=== PATIENT | male | born 1935 | race Caucasian/White ===

== ENCOUNTER 2017-10-13 15:43 | Emergency (ER) | payer MEDICARE ==
[2017-10-13] MEDS ORDERED: Albuterol/Ipratropium 3.0-0.5 MG/3 ML Neb Soln NEB ONE (16:18)
--- NOTE | 2017-10-13 16:20 | EDM.PDOC ---
ED HPI GENERAL MEDICAL PROBLEM - General Chief Complaint: Respiratory Problem Stated Complaint: SHORT OF BREATH Time Seen by Provider: 10/13/17 16:05 Source of Information: Reports: Patient History Limitations: Reports: No Limitations - History of Present Illness INITIAL COMMENTS - FREE TEXT/NARRATIVE: Patient comes in with 2 week history of cough. He seen in the clinic this last week Saturday and was started on Bactrim and Tessalon Pearls for this ongoing cough he did have an x-ray completed which he was told was normal. However he states that no lab work is drawn at the time he is not sure what his diagnosis was in the clinic other than he was prescribed the 2 medications. Patient states that the cough is progressed he is becoming more short of breath with activity is unable to lay flat in bed at night. Exertion wears him out. The cough becomes so pronounce he will gag. He is producing large amounts of sputum. He does not check his temp but was extremely chill last night in bed. Denies and chest pain, n/v, headache, blurred vision, or numbness and tingling. Onset: Gradual Duration: Constant Associated Symptoms: Reports: Cough, cough w sputum, Shortness of Breath - Related Data Allergies Allergy/AdvReac Type Severity Reaction Status Date / Time niacin Allergy Nausea and Verified 10/13/17 15:59 Vomiting Home Meds: Home Meds ALPRAZolam [Xanax] 0.25 mg PO Q8H PRN 08/04/13 [History] Albuterol [Proventil HFA] 1 puff INH QID PRN 08/04/13 [History] Aspirin [Low Dose Aspirin EC] 81 mg PO DAILY 08/04/13 [History] Carvedilol [Coreg] 25 mg PO BID 08/04/13 [History] Docusate Sodium [Colace] 100 mg PO DAILY 08/04/13 [History] Furosemide [Lasix] 20 mg PO BID 08/04/13 [History] Losartan [Cozaar] 100 mg PO DAILY 08/04/13 [History] Nitroglycerin [Nitrostat] 0.4 mg SL ASDIRECTED PRN 08/04/13 [History] Omeprazole [Prilosec] 20 mg PO DAILY PRN 08/04/13 [History] Sertraline [Zoloft] 25 mg PO DAILY 08/04/13 [History] Simethicone [Mylanta Gas Maximum Strength] 10 ml PO BID PRN 08/04/13 [History] Albuterol/Ipratropium [DuoNeb 3.0-0.5 MG/3 ML] 3 ml .XX TID 1 Days #3 neb [Rx] Budesonide/Formoterol [Symbicort 160-4.5 MCG] 2 puff INH BID 10/13/17 [History] Calcium Carbonate/Vitamin D3 [Calcium 500 + Vit D 200 Caplet] 1 each PO BID 07/20 [History] Fish Oil/Borage/Flax/Om3,6,9#1 [[place] 3-6-9 1,200 mg Softgel] 1,200 mg PO DAILY 10/13/17 [History] Hydrochlorothiazide 12.5 mg PO DAILY 10/13/17 [History] Isosorbide Mononitrate [Imdur] 60 mg PO DAILY 10/13/17 [History] Tiotropium [Spiriva] 18 mcg INH DAILY 10/13/17 [History] atorvaSTATin [Lipitor] 20 mg PO DAILY 10/13/17 [History] metFORMIN [Glucophage] 500 mg PO WITHDINNER 10/13/17 [History] Past Medical History HEENT History: Reports: Cataract Cardiovascular History: Reports: Angina, CAD, Heart Failure, High Cholesterol, Hypertension, [place], Other (See Below) Other Cardiovascular History: mild aortic regurg., mitral valve insuff. Respiratory History: Reports: Asthma, COPD Gastrointestinal History: Reports: GERD Psychiatric History: Reports: Anxiety Endocrine/Metabolic History: Reports: Diabetes, Type II, Obesity/BMI 30+ Hematologic History: Reports: Anemia, Other (See Below) Other Hematologic History: thrombocytopenia Oncologic (Cancer) History: Reports: Prostate - Past Surgical History Cardiovascular Surgical History: Reports: Coronary Artery Bypass, Coronary Artery Stent Social & Family History - Tobacco Use Smoking Status *Q: Former Smoker Used Tobacco, but Quit: Yes Month Tobacco Last Used: 1995 - Recreational Drug Use Recreational Drug Use: No ED ROS GENERAL - Review of Systems Review Of Systems: See Below Constitutional: Reports: Chills, Malaise, Night Sweats HEENT: Reports: Rhinitis Respiratory: Reports: Shortness of Breath, Wheezing, Cough, Sputum Cardiovascular: Reports: Dyspnea on Exertion Endocrine: Reports: No Symptoms GI/Abdominal: Reports: No Symptoms Musculoskeletal: Reports: No Symptoms Skin: Reports: No Symptoms Neurological: Reports: No Symptoms ED EXAM, GENERAL - Physical Exam Exam: See Below Exam Limited By: No Limitations General Appearance: Alert, WD/WN, No Apparent Distress Ear Exam: Bilateral Ear: Auricle Normal, Canal Normal, TM normal Nose: Normal Inspection, Normal Mucosa Throat/Mouth: Normal Inspection, Normal Lips, Normal Gums, Normal Oropharynx, Normal Voice, No Airway Compromise Respiratory/Chest: Decreased Breath Sounds, Wheezing. No: Stridor, Pleural Rub , Accessory Muscle Use, Retractions, Splinting Cardiovascular: Regular Rate, Rhythm, No Edema, No Murmur, No Rub Peripheral Pulses: 2+: Radial (L), Radial (R), Posterior Tibial (L), Posterior Tibial (R), Dorsalis Pedis (L), Dorsalis Pedis (R) GI/Abdominal: Normal Bowel Sounds, Soft, Non-Tender, No Distention Extremities: Normal Inspection, Normal Range of Motion, Non-Tender, Normal Capillary Refill Neurological: Alert, Oriented, Normal Cognition, Normal Gait Psychiatric: Normal Affect, Normal Mood Skin Exam: Warm, Dry, Intact, Normal Color, No Rash EKG INTERPRETATION Rhythm: A-Fib Course - Vital Signs Last Recorded V/S: Last Vital Signs Temp 35.9 C 10/13/17 15:56 Pulse 74 10/13/17 15:56 Resp 24 H 10/13/17 15:56 BP 165/83 H 10/13/17 15:56 Pulse Ox 96 10/13/17 15:56 - Orders/Labs/Meds Orders: Active Orders 24 hr Category Date Time Status EKG 12 Lead [EKG Documentation Completion] [RC] URGENT Care 10/13/17 16:19 Active RT Aerosol Therapy [RC] ASDIRECTED Care 10/13/17 16:18 Active Chest 2V [CR] Stat Exams 10/13/17 16:26 Taken Azithromycin [Zithromax] Med 10/13/17 17:15 Active 500 mg PO DAILY Medication Orders Azithromycin (Zithromax) 500 mg PO DAILY [facility] Last Admin: 10/13/17 17:18 Dose: 500 mg Labs: Laboratory Tests 10/13/17 10/13/17 Range/Units 16:30 16:30 WBC 5.3 (4.0-10.0) x10^3/uL RBC 3.94 L (4.5-6.0) x10^6/uL Hgb 11.8 L (14.0-18.0) g/dL Hct 34.9 L (40.0-52.0) % MCV 88.6 (78.0-93.0) fL MCH 29.9 (26.0-32.0) pg MCHC 33.8 (32.0-36.0) g/dL RDW Coeff of Tony 14.0 (10.0-15.0) % Plt Count 125 L (130-400) x10^3/uL Neut % (Auto) 62.8 (50.0-80.0) % Lymph % (Auto) 19.7 L (25.0-50.0) % [place] % (Auto) 10.7 (2.0-11.0) % Eos % (Auto) 6.2 H (0.0-4.0) % Baso % (Auto) 0.6 (0.2-1.2) % Sodium 138 (136-145) mmol/L Potassium 4.2 (3.5-5.1) mmol/L Chloride 103 (98-107) mmol/L Carbon Dioxide 23 (21-32) mmol/L BUN 13 (7-18) mg/dL Creatinine 1.4 H (0.70-1.30) mg/dL Est Cr Clr Drug Dosing 45.42 mL/min Estimated GFR (MDRD) 49 Glucose 97 (74-106) mg/dL Calcium 7.9 L (8.5-10.1) mg/dL Corrected Calcium 8.38 L (8.5-10.1) mg/dL Total Bilirubin 0.4 (0.2-1.0) mg/dL AST 24 (15-37) U/L ALT 32 (16-63) U/L Alkaline Phosphatase 69 (46-116) U/L NT-Pro-B Natriuret Pep 484 H (<=450) pg/mL Total Protein 6.3 L (6.4-8.2) g/dL Albumin 3.4 (3.4-5.0) g/dL Globulin 2.9 Albumin/Globulin Ratio 1.17 Meds: Medications Generic Name Dose Route Start Last Admin Trade Name Freq PRN Reason Stop Dose Admin Azithromycin 500 mg 10/13/17 17:15 10/13/17 17:18 Zithromax PO 500 mg DAILY ZOIE Administration Discontinued Medications Generic Name Dose Route Start Last Admin Trade Name Maryse PRN Reason Stop Dose Admin Albuterol/Ipratropium 3 ml 10/13/17 16:18 10/13/17 16:27 Duoneb 3.0-0.5 Mg/3 Ml NEB 10/13/17 16:19 3 ml ONETIME ONE Administration Albuterol/Ipratropium Confirm 10/13/17 17:13 10/13/17 17:20 Duoneb 3.0-0.5 Mg/3 Ml Administered 10/13/17 17:14 9 ml Dose Administration 9 ml .ROUTE .STK-MED ONE Departure - Departure Time of Disposition: 17:15 Disposition: Home, Self-Care 01 Condition: Good Clinical Impression: Acute bronchiolitis Qualifiers: Bronchiolitis organism: unspecified organism Qualified Code(s): J21.9 - Acute bronchiolitis, unspecified - Discharge Information Prescriptions: Albuterol/Ipratropium [DuoNeb 3.0-0.5 MG/3 ML] 3 ml .XX TID 1 Days #3 neb Referrals: Mari Victor DO [Primary Care Provider] - Forms: ED Department Discharge Additional Instructions: Follow-up in the clinic within the week regarding your BNP which is 490 Take antibiotics as prescribed Use douneb as needed for shortness of breath and cough Increase rest Activity and diet as tolerated Return to the emergency room if he becomes short of breath having chest pain or worsening symptoms - My Orders Last 24 Hours: My Active Orders 10/13/17 16:18 RT Aerosol Therapy [RC] ASDIRECTED 10/13/17 16:19 EKG 12 Lead [EKG Documentation Completion] [RC] URGENT 10/13/17 16:26 Chest 2V [CR] Stat 10/13/17 17:15 Azithromycin [Zithromax] 500 mg PO DAILY - Assessment/Plan Last 24 Hours: My Active Orders 10/13/17 16:18 RT Aerosol Therapy [RC] ASDIRECTED 10/13/17 16:19 EKG 12 Lead [EKG Documentation Completion] [RC] URGENT 10/13/17 16:26 Chest 2V [CR] Stat 10/13/17 17:15 Azithromycin [Zithromax] 500 mg PO DAILY
[2017-10-13] MEDS ORDERED: Albuterol/Ipratropium 3.0-0.5 MG/3 ML Neb Soln ONE (17:13)
[2017-10-13] MEDS ORDERED: Azithromycin 250 MG Tab PO SCH (17:15)
== END 2017-10-13 17:25 | disposition home or self-care (01) ==
LOC: VM.ED 15:43
DX: J21.9 Acute bronchiolitis, unspecified (principal); E78.00 Pure hypercholesterolemia, unspecified; I11.0 Hypertensive heart disease with heart failure; I50.9 Heart failure, unspecified; E11.9 Type 2 diabetes mellitus without complications; Z88.8 Allergy status to other drugs, medicaments and biological substances; Z79.82 Long term (current) use of aspirin; Z79.899 Other long term (current) drug therapy; Z87.891 Personal history of nicotine dependence
CPT/HCPCS: 36415; 71046; 80053; 83880; 85025; 93005; 94640; 99283; 99285; A9270

== ENCOUNTER 2019-03-21 10:09 | Emergency (ER) | payer MEDICARE ==
--- NOTE | 2019-03-21 10:33 | EDM.PDOC ---
ED HPI GENERAL MEDICAL PROBLEM - General Chief Complaint: General Time Seen by Provider: 03/21/19 10:15 Source of Information: Reports: Patient History Limitations: Reports: No Limitations - History of Present Illness INITIAL COMMENTS - FREE TEXT/NARRATIVE: Patient comes into the emergency department with complaints of urinary retention and not drain catheter. Patient has a chronic catheter and just recently had her exchange approximate 3 days ago. Patient has had no concerns since then however this morning when he woke up his urinary catheter bag was empty and has symmetric amount of pain and distress and his bladder. Patient denies any fever, shortness breath, or peripheral edema. Onset: Sudden Bladder Pain Score (Numeric/FACES): 8 - Related Data Allergies Allergy/AdvReac Type Severity Reaction Status Date / Time niacin AdvReac Nausea and Verified 03/21/19 10:33 Vomiting Home Meds: Home Meds ALPRAZolam [Xanax] 0.25 mg PO Q8H PRN 08/04/13 [History] Albuterol [Proventil HFA] 1 puff INH QID PRN 08/04/13 [History] Aspirin [Low Dose Aspirin EC] 81 mg PO DAILY 08/04/13 [History] Carvedilol [Coreg] 25 mg PO BID 08/04/13 [History] Docusate Sodium [Colace] 100 mg PO DAILY 08/04/13 [History] Furosemide [Lasix] 20 mg PO BID 08/04/13 [History] Losartan [Cozaar] 100 mg PO DAILY 08/04/13 [History] Nitroglycerin [Nitrostat] 0.4 mg SL ASDIRECTED PRN 08/04/13 [History] Omeprazole [Prilosec] 20 mg PO DAILY PRN 08/04/13 [History] Sertraline [Zoloft] 25 mg PO DAILY 08/04/13 [History] Simethicone [Mylanta Gas Maximum Strength] 10 ml PO BID PRN 08/04/13 [History] Albuterol/Ipratropium [DuoNeb 3.0-0.5 MG/3 ML] 3 ml .XX TID 1 Days #3 neb [Rx] Budesonide/Formoterol [Symbicort 160-4.5 MCG] 2 puff INH BID 10/13/17 [History] Calcium Carbonate/Vitamin D3 [Calcium 500 + Vit D 200 Caplet] 1 each PO BID 07/20 [History] Fish Oil/Borage/Flax/Om3,6,9#1 [[place] 3-6-9 1,200 mg Softgel] 1,200 mg PO DAILY 10/13/17 [History] Isosorbide Mononitrate [Imdur] 60 mg PO DAILY 10/13/17 [History] Tiotropium [Spiriva] 18 mcg INH DAILY 10/13/17 [History] atorvaSTATin [Lipitor] 20 mg PO DAILY 10/13/17 [History] hydroCHLOROthiazide [Hydrochlorothiazide] 12.5 mg PO DAILY 10/13/17 [History] metFORMIN [Glucophage] 500 mg PO WITHDINNER 10/13/17 [History] Ciprofloxacin HCl [Cipro] 500 mg PO BID #14 tablet 03/21/19 [Rx] Past Medical History HEENT History: Reports: Cataract Cardiovascular History: Reports: Angina, CAD, Heart Failure, High Cholesterol, Hypertension, [place], Other (See Below) Other Cardiovascular History: mild aortic regurg., mitral valve insuff. Respiratory History: Reports: Asthma, COPD Gastrointestinal History: Reports: GERD Psychiatric History: Reports: Anxiety Endocrine/Metabolic History: Reports: Diabetes, Type II, Obesity/BMI 30+ Hematologic History: Reports: Anemia, Other (See Below) Other Hematologic History: thrombocytopenia Oncologic (Cancer) History: Reports: Prostate - Past Surgical History Cardiovascular Surgical History: Reports: Coronary Artery Bypass, Coronary Artery Stent ED ROS GENERAL - Review of Systems Review Of Systems: ROS reveals no pertinent complaints other than HPI. Constitutional: Reports: No Symptoms HEENT: Reports: No Symptoms Respiratory: Reports: No Symptoms Cardiovascular: Reports: No Symptoms Endocrine: Reports: No Symptoms GI/Abdominal: Reports: No Symptoms : Reports: No Symptoms, Urinary Retention Skin: Reports: No Symptoms Neurological: Reports: No Symptoms Psychiatric: Reports: No Symptoms Hematologic/Lymphatic: Reports: No Symptoms Immunologic: Reports: No Symptoms ED EXAM, GENERAL - Physical Exam Exam: See Below Exam Limited By: No Limitations General Appearance: Alert, WD/WN, No Apparent Distress Head: Atraumatic, Normocephalic Respiratory/Chest: No Respiratory Distress, Lungs Clear, No Accessory Muscle Use , Chest Non-Tender Cardiovascular: Normal Peripheral Pulses, Regular Rate, Rhythm, No Edema (Male) Exam: No Hernia, Normal Inspection, Normal Prostate, Other (cuellar cath in place ) Back Exam: Normal Inspection, Full Range of Motion Extremities: Normal Inspection, Normal Range of Motion, Non-Tender, No Pedal Edema, Normal Capillary Refill Neurological: Alert, Oriented, Normal Gait Psychiatric: Normal Affect, Normal Mood Skin Exam: Warm, Dry, Intact, Normal Color Course - Vital Signs Last Recorded V/S: Last Vital Signs Temp 35.9 C 03/21/19 10:31 Pulse 93 03/21/19 10:31 Resp 20 03/21/19 10:31 BP 165/87 H 03/21/19 10:31 Pulse Ox 95 03/21/19 10:31 - Orders/Labs/Meds Orders: Active Orders 24 hr Category Date Time Status CULTURE URINE [RM] Stat Lab 03/21/19 10:23 Received Labs: Laboratory Tests 03/21/19 Range/Units 10:23 Urine Color [place] H (YELLOW) Urine Appearance Cloudy H (CLEAR) Urine pH >=9.0 H (5.0-8.0) Ur Specific [place] 1.015 Urine Protein 100 H (NEGATIVE) mg/dL Urine Glucose (UA) Negative (NEGATIVE) mg/dL Urine Ketones Negative (NEGATIVE) mg/dL Urine Occult Blood Large H (NEGATIVE) Urine Nitrite Positive H (NEGATIVE) Urine Bilirubin Negative (NEGATIVE) Urine Urobilinogen 1.0 (0.2) EU/dL Ur Leukocyte Esterase Small H (NEGATIVE) Urine RBC 40-50 H (NOT SEEN) /HPF Urine WBC 20-30 H (NOT SEEN) /HPF Ur Squamous Epith Cells Not seen (NEGATIVE) /HPF Urine Bacteria Moderate H (NEGATIVE) /HPF Urine Mucus Not seen (NEGATIVE) /LPF Meds: Medications Discontinued Medications Generic Name Dose Route Start Last Admin Trade Name Flashq PRN Reason Stop Dose Admin Ciprofloxacin 500 mg 03/21/19 11:34 03/21/19 11:38 Ciprofloxacin Hcl PO 03/21/19 11:35 500 mg ONETIME ONE Administration Departure - Departure Time of Disposition: 11:30 Disposition: Home, Self-Care 01 Condition: Good Clinical Impression: Cystitis - Discharge Information *PRESCRIPTION DRUG MONITORING PROGRAM REVIEWED*: Not Applicable *COPY OF PRESCRIPTION DRUG MONITORING REPORT IN PATIENT ROYCE: Not Applicable Prescriptions: Ciprofloxacin HCl [Cipro] 500 mg PO BID #14 tablet Instructions: Urinary Tract Infection, Adult, [id number], Ciprofloxacin tablets Referrals: Mari Victor, [Primary Care Provider] - Forms: ED Department Discharge Additional Instructions: 1. increase your water intake 2. Take antibiotics as prescribed 3. Take a probiotic to help promote GI health 4. Follow up as needed 5. If your Culture comes back with needing a different antibiotic staff will call you. If you do not receive a call then the antibiotics are working well. 6. Activity and diet as tolerated 7. Call with questions or concerns. - Problem List Review Problem List Initiated/Reviewed/Updated: Yes - My Orders Last 24 Hours: My Active Orders 03/21/19 10:23 CULTURE URINE [RM] Stat - Assessment/Plan Last 24 Hours: My Active Orders 03/21/19 10:23 CULTURE URINE [RM] Stat Assessment:: 1. plugged catheter 2. Complicated Cystits/UTI Plan: 1. Catheter irrigation completed via nursing with good results. Pt cath flowing without difficulty after and large amount of sediment draining. 2. UA obtained 3. Pt's symptoms have resolved and feels better after irrigation. Denies any other concerns or complaints. 4. Patient given Ciprofloxacin in the ER and a script sent with the patient. 5. Education given regarding activity, diet, antibiotic, probiotic, OTC pain medications, and follow up care 6. All questions and concerns addressed prior to discharge.
[2019-03-21] MEDS ORDERED: Ciprofloxacin 500 MG Tab PO ONE (11:34)
== END 2019-03-21 11:43 | disposition home or self-care (01) ==
LOC: VM.ED 10:09
DX: T83.098A Other mechanical complication of other urinary catheter, initial encounter (principal); R33.8 Other retention of urine; N30.90 Cystitis, unspecified without hematuria; I11.0 Hypertensive heart disease with heart failure; I50.9 Heart failure, unspecified; E66.9 Obesity, unspecified; I25.10 Atherosclerotic heart disease of native coronary artery without angina pectoris; I25.2 Old myocardial infarction; J44.9 Chronic obstructive pulmonary disease, unspecified; F41.9 Anxiety disorder, unspecified; Z79.84 Long term (current) use of oral hypoglycemic drugs; Z88.8 Allergy status to other drugs, medicaments and biological substances; Z79.82 Long term (current) use of aspirin; Z79.899 Other long term (current) drug therapy
CPT/HCPCS: 81001; 87086; 87088; 87186; 99283; A9270; 99284-GF

== ENCOUNTER 2019-03-22 13:59 | Emergency (ER) | payer MEDICARE ==
--- NOTE | 2019-03-22 14:39 | EDM.PDOC ---
ED HPI GENERAL MEDICAL PROBLEM - General Chief Complaint: General Stated Complaint: cuellar cath issues Time Seen by Provider: 03/22/19 14:05 Source of Information: Reports: Patient History Limitations: Reports: No Limitations - History of Present Illness INITIAL COMMENTS - FREE TEXT/NARRATIVE: Patient comes into the emergency department with concern of Cuellar catheter concerns. Patient was in yesterday for similar incidents and was treated for UTI and a blocked catheter. Patient underwent 2 year ago patient yesterday with success. Patient comes in this morning stating that he's had retention no urination in the bag. He has also began having bladder spasms due to the retention. He denies any fever, shortness breath, chest pain, fever, or discharge. Onset: Today Quality: Reports: Ache, Throbbing Severity: Mild Improves with: Reports: None Worsens with: Reports: None Associated Symptoms: Reports: No Other Symptoms Perineal Area Pain Score (Numeric/FACES): 4 - Related Data Allergies Allergy/AdvReac Type Severity Reaction Status Date / Time niacin AdvReac Nausea and Verified 03/22/19 15:41 Vomiting Home Meds: Home Meds ALPRAZolam [Xanax] 0.25 mg PO Q8H PRN 08/04/13 [History] Albuterol [Proventil HFA] 1 puff INH QID PRN 08/04/13 [History] Aspirin [Low Dose Aspirin EC] 81 mg PO DAILY 08/04/13 [History] Carvedilol [Coreg] 25 mg PO BID 08/04/13 [History] Docusate Sodium [Colace] 100 mg PO DAILY 08/04/13 [History] Furosemide [Lasix] 20 mg PO BID 08/04/13 [History] Losartan [Cozaar] 100 mg PO DAILY 08/04/13 [History] Nitroglycerin [Nitrostat] 0.4 mg SL ASDIRECTED PRN 08/04/13 [History] Omeprazole [Prilosec] 20 mg PO DAILY PRN 08/04/13 [History] Sertraline [Zoloft] 25 mg PO DAILY 08/04/13 [History] Simethicone [Mylanta Gas Maximum Strength] 10 ml PO BID PRN 08/04/13 [History] Albuterol/Ipratropium [DuoNeb 3.0-0.5 MG/3 ML] 3 ml .XX TID 1 Days #3 neb [Rx] Budesonide/Formoterol [Symbicort 160-4.5 MCG] 2 puff INH BID 10/13/17 [History] Calcium Carbonate/Vitamin D3 [Calcium 500 + Vit D 200 Caplet] 1 each PO BID 07/20 [History] Fish Oil/Borage/Flax/Om3,6,9#1 [[place] 3-6-9 1,200 mg Softgel] 1,200 mg PO DAILY 10/13/17 [History] Isosorbide Mononitrate [Imdur] 60 mg PO DAILY 10/13/17 [History] Tiotropium [Spiriva] 18 mcg INH DAILY 10/13/17 [History] atorvaSTATin [Lipitor] 20 mg PO DAILY 10/13/17 [History] hydroCHLOROthiazide [Hydrochlorothiazide] 12.5 mg PO DAILY 10/13/17 [History] metFORMIN [Glucophage] 500 mg PO WITHDINNER 10/13/17 [History] Ciprofloxacin HCl [Cipro] 500 mg PO BID #14 tablet 03/21/19 [Rx] Past Medical History HEENT History: Reports: Cataract Cardiovascular History: Reports: Angina, CAD, Heart Failure, High Cholesterol, Hypertension, [place], Other (See Below) Other Cardiovascular History: mild aortic regurg., mitral valve insuff. Respiratory History: Reports: Asthma, COPD Gastrointestinal History: Reports: GERD Psychiatric History: Reports: Anxiety Endocrine/Metabolic History: Reports: Diabetes, Type II, Obesity/BMI 30+ Hematologic History: Reports: Anemia, Other (See Below) Other Hematologic History: thrombocytopenia Oncologic (Cancer) History: Reports: Prostate - Past Surgical History Cardiovascular Surgical History: Reports: Coronary Artery Bypass, Coronary Artery Stent ED ROS GENERAL - Review of Systems Review Of Systems: ROS reveals no pertinent complaints other than HPI. Constitutional: Reports: No Symptoms HEENT: Reports: No Symptoms Respiratory: Reports: No Symptoms Cardiovascular: Reports: No Symptoms Endocrine: Reports: No Symptoms GI/Abdominal: Reports: No Symptoms Musculoskeletal: Reports: No Symptoms Skin: Reports: No Symptoms ED EXAM, GENERAL - Physical Exam Exam: See Below Exam Limited By: No Limitations General Appearance: Alert, WD/WN, No Apparent Distress Head: Atraumatic, Normocephalic Respiratory/Chest: No Respiratory Distress, Lungs Clear, Normal Breath Sounds, No Accessory Muscle Use, Chest Non-Tender Cardiovascular: Normal Peripheral Pulses, Regular Rate, Rhythm, No Edema, No Gallop, No JVD, No Murmur, No Rub GI/Abdominal: Normal Bowel Sounds, Soft, Non-Tender, No Organomegaly, No Distention, No Abnormal Bruit, No Mass (Male) Exam: No: Penile Lesions, Rash, Scrotum Tenderness (L), Scrotum Tenderness (R), Testicular Mass, Testicular Tenderness (L), Testicular Tenderness (R), Urethral Discharge Back Exam: Normal Inspection, Full Range of Motion, NT Extremities: Normal Inspection, Normal Range of Motion, Non-Tender, Normal Capillary Refill, No Pedal Edema Neurological: Alert, Oriented, CN II-XII Intact, Normal Cognition, Normal Gait, Normal Reflexes, No Motor/Sensory Deficits Course - Vital Signs Last Recorded V/S: Last Vital Signs Temp 36.6 C 03/22/19 14:05 Pulse 65 03/22/19 14:05 Resp 16 03/22/19 14:05 BP 129/76 03/22/19 14:05 Pulse Ox 96 03/22/19 14:05 Departure - Departure Time of Disposition: 14:40 Disposition: Home, Self-Care 01 Condition: Good Clinical Impression: Cuellar catheter problem Qualifiers: Encounter type: initial encounter Qualified Code(s): T83.9XXA - Unspecified complication of genitourinary prosthetic device, implant and graft, initial encounter - Discharge Information *PRESCRIPTION DRUG MONITORING PROGRAM REVIEWED*: Not Applicable *COPY OF PRESCRIPTION DRUG MONITORING REPORT IN PATIENT ROYCE: Not Applicable Instructions: Indwelling Urinary Catheter Care, Adult, [id number] Referrals: Mari Victor, DO [Primary Care Provider] - Forms: ED Department Discharge Additional Instructions: 1. rest 2. Increase your water intake 3. Continue with your antibiotics as prescribed 4. Follow up in the clinic tomorrow if symptoms continue 5. Call with any questions or concerns - Problem List Review Problem List Initiated/Reviewed/Updated: Yes - Assessment/Plan Assessment:: 1. bladder irrigation- was unsuccessful 2. cuellar catheter exchange completed 3. Education provided to the patient and follow up instructions provided to the patient. 4. All questions and concerns addressed prior to discharge.
== END 2019-03-22 15:05 | disposition home or self-care (01) ==
LOC: VM.ED 13:59
DX: T83.098A Other mechanical complication of other urinary catheter, initial encounter (principal); I25.10 Atherosclerotic heart disease of native coronary artery without angina pectoris; I11.0 Hypertensive heart disease with heart failure; I50.9 Heart failure, unspecified; E78.00 Pure hypercholesterolemia, unspecified; I25.2 Old myocardial infarction; J44.9 Chronic obstructive pulmonary disease, unspecified; K21.9 Gastro-esophageal reflux disease without esophagitis; E11.9 Type 2 diabetes mellitus without complications; Z88.1 Allergy status to other antibiotic agents; Z79.899 Other long term (current) drug therapy; Z79.82 Long term (current) use of aspirin; Z79.84 Long term (current) use of oral hypoglycemic drugs
CPT/HCPCS: 51700; 51702; 99283-25; 99283-GF

== ENCOUNTER 2019-03-23 12:22 | Emergency (ER) | payer MEDICARE ==
--- NOTE | 2019-03-23 17:12 | EDM.PDOC ---
ED HPI GENERAL MEDICAL PROBLEM - General Chief Complaint: Genitourinary Problem Stated Complaint: CATH ISSUES Time Seen by Provider: 03/23/19 12:22 Source of Information: Reports: Patient History Limitations: Reports: No Limitations - History of Present Illness INITIAL COMMENTS - FREE TEXT/NARRATIVE: Pt. presents to ER with complaints of inability to void. He has a cuellar catheter in place and was seen twice this past weekend by Sommer Mueller NP and diagnosed with UTI. He was started on Cipro, and his urine culture grew pseudomonas susceptible to Cipro. He states that he continues to have blood and mucus from the catheter. Denies any fever or chills. No chest pain or shortness of breath. Denies any abdominal or back pain. He states that he was able to void earlier this AM, and it got plugged early this afternoon. Onset: Today Onset Date: 03/23/19 - Related Data Allergies Allergy/AdvReac Type Severity Reaction Status Date / Time niacin AdvReac Nausea and Verified 03/23/19 12:29 Vomiting Home Meds: Home Meds ALPRAZolam [Xanax] 0.25 mg PO Q8H PRN 08/04/13 [History] Albuterol [Proventil HFA] 1 puff INH QID PRN 08/04/13 [History] Aspirin [Low Dose Aspirin EC] 81 mg PO DAILY 08/04/13 [History] Carvedilol [Coreg] 25 mg PO BID 08/04/13 [History] Docusate Sodium [Colace] 100 mg PO DAILY 08/04/13 [History] Furosemide [Lasix] 20 mg PO BID 08/04/13 [History] Losartan [Cozaar] 100 mg PO DAILY 08/04/13 [History] Nitroglycerin [Nitrostat] 0.4 mg SL ASDIRECTED PRN 08/04/13 [History] Omeprazole [Prilosec] 20 mg PO DAILY PRN 08/04/13 [History] Sertraline [Zoloft] 25 mg PO DAILY 08/04/13 [History] Simethicone [Mylanta Gas Maximum Strength] 10 ml PO BID PRN 08/04/13 [History] Albuterol/Ipratropium [DuoNeb 3.0-0.5 MG/3 ML] 3 ml .XX TID 1 Days #3 neb [Rx] Budesonide/Formoterol [Symbicort 160-4.5 MCG] 2 puff INH BID 10/13/17 [History] Calcium Carbonate/Vitamin D3 [Calcium 500 + Vit D 200 Caplet] 1 each PO BID 07/20 [History] Fish Oil/Borage/Flax/Om3,6,9#1 [[place] 3-6-9 1,200 mg Softgel] 1,200 mg PO DAILY 10/13/17 [History] Isosorbide Mononitrate [Imdur] 60 mg PO DAILY 10/13/17 [History] Tiotropium [Spiriva] 18 mcg INH DAILY 10/13/17 [History] atorvaSTATin [Lipitor] 20 mg PO DAILY 10/13/17 [History] hydroCHLOROthiazide [Hydrochlorothiazide] 12.5 mg PO DAILY 10/13/17 [History] metFORMIN [Glucophage] 500 mg PO WITHDINNER 10/13/17 [History] Ciprofloxacin HCl [Cipro] 500 mg PO BID #14 tablet 03/21/19 [Rx] Past Medical History HEENT History: Reports: Cataract Cardiovascular History: Reports: Angina, CAD, Heart Failure, High Cholesterol, Hypertension, [place], Other (See Below) Other Cardiovascular History: mild aortic regurg., mitral valve insuff. Respiratory History: Reports: Asthma, COPD Gastrointestinal History: Reports: GERD Other Genitourinary History: indwelling catheter Psychiatric History: Reports: Anxiety Endocrine/Metabolic History: Reports: Diabetes, Type II, Obesity/BMI 30+ Hematologic History: Reports: Anemia, Other (See Below) Other Hematologic History: thrombocytopenia Oncologic (Cancer) History: Reports: Prostate - Past Surgical History Cardiovascular Surgical History: Reports: Coronary Artery Bypass, Coronary Artery Stent Social & Family History - Tobacco Use Smoking Status *Q: Unknown Ever Smoked ED ROS GENERAL - Review of Systems Review Of Systems: See Below Constitutional: Reports: No Symptoms HEENT: Reports: No Symptoms Respiratory: Reports: No Symptoms Cardiovascular: Reports: No Symptoms Endocrine: Reports: No Symptoms GI/Abdominal: Reports: No Symptoms : Reports: Hematuria, Urinary Retention Musculoskeletal: Reports: No Symptoms Skin: Reports: No Symptoms Neurological: Reports: No Symptoms Psychiatric: Reports: No Symptoms Hematologic/Lymphatic: Reports: No Symptoms Immunologic: Reports: No Symptoms ED EXAM, GENERAL - Physical Exam Exam: See Below Exam Limited By: No Limitations General Appearance: Alert, WD/WN, No Apparent Distress Respiratory/Chest: No Respiratory Distress, Lungs Clear, Normal Breath Sounds, No Accessory Muscle Use, Chest Non-Tender Cardiovascular: Normal Peripheral Pulses, Regular Rate, Rhythm, No Edema, No Murmur GI/Abdominal: Soft, Non-Tender, No Organomegaly, No Distention, No Mass (Male) Exam: Normal Inspection, Other (appears to be a blood clot in the distal portion of the cuellar catheter.) Course - Vital Signs Last Recorded V/S: Last Vital Signs Temp 36.4 C 03/23/19 12:22 Pulse 69 03/23/19 12:22 Resp 20 03/23/19 12:22 BP 134/73 03/23/19 12:22 Pulse Ox 97 03/23/19 12:22 Departure - Departure Time of Disposition: 13:15 Disposition: Home, Self-Care 01 Clinical Impression: UTI, Urinary tract infectious disease, Obstructed Cuellar catheter - Discharge Information Referrals: Mari Victor, [Primary Care Provider] - Forms: ED Department Discharge Additional Instructions: Return to ER if you have continued plugging of the catheter. You may need to return if it plugs again. This will resolve once the bladder infections resolves. Follow-up in clinic 7-10 days. - Problem List Review Problem List Initiated/Reviewed/Updated: Yes - Assessment/Plan Plan: Pt. will be discharged. No changes to any medications at this time. Return to ER if there is recurrence of urinary retention.
== END 2019-03-23 13:03 | disposition home or self-care (01) ==
LOC: VM.ED 12:22
DX: T83.098A Other mechanical complication of other urinary catheter, initial encounter (principal); N39.0 Urinary tract infection, site not specified; I25.10 Atherosclerotic heart disease of native coronary artery without angina pectoris; E78.00 Pure hypercholesterolemia, unspecified; I11.0 Hypertensive heart disease with heart failure; I50.9 Heart failure, unspecified; I25.2 Old myocardial infarction; J44.9 Chronic obstructive pulmonary disease, unspecified; F41.9 Anxiety disorder, unspecified; E11.9 Type 2 diabetes mellitus without complications; Z88.8 Allergy status to other drugs, medicaments and biological substances; Z79.899 Other long term (current) drug therapy; Z79.82 Long term (current) use of aspirin; Z79.84 Long term (current) use of oral hypoglycemic drugs
CPT/HCPCS: 51700; 99283-25; 99283-GF

== ENCOUNTER 2019-03-24 14:11 | Emergency (ER) | payer MEDICARE ==
--- NOTE | 2019-03-24 14:31 | EDM.PDOC ---
ED HPI GENERAL MEDICAL PROBLEM - General Chief Complaint: Genitourinary Problem Stated Complaint: PLUGGED CATH Time Seen by Provider: 03/24/19 14:24 Source of Information: Reports: Patient History Limitations: Reports: No Limitations - History of Present Illness INITIAL COMMENTS - FREE TEXT/NARRATIVE: Patient comes in with complaints of obstructed catheter. He has been in every day since the for similar reasons. It was changed Saturday the . No fever, no chills, history of prostate cancer. This was placed in [facility] and was told to leave for 6 weeks. Does follow with urology in [place]. He has no other complaints. States he emptied it at 10 this AM. Onset: Gradual Duration: Intermittent Quality: Reports: Ache Severity: Mild Improves with: Reports: None Worsens with: Reports: None Associated Symptoms: Reports: No Other Symptoms - Related Data Allergies Allergy/AdvReac Type Severity Reaction Status Date / Time niacin AdvReac Nausea and Verified 03/24/19 14:29 Vomiting Home Meds: Home Meds ALPRAZolam [Xanax] 0.25 mg PO Q8H PRN 08/04/13 [History] Albuterol [Proventil HFA] 1 puff INH QID PRN 08/04/13 [History] Aspirin [Low Dose Aspirin EC] 81 mg PO DAILY 08/04/13 [History] Carvedilol [Coreg] 25 mg PO BID 08/04/13 [History] Docusate Sodium [Colace] 100 mg PO DAILY 08/04/13 [History] Furosemide [Lasix] 20 mg PO BID 08/04/13 [History] Losartan [Cozaar] 100 mg PO DAILY 08/04/13 [History] Nitroglycerin [Nitrostat] 0.4 mg SL ASDIRECTED PRN 08/04/13 [History] Omeprazole [Prilosec] 20 mg PO DAILY PRN 08/04/13 [History] Sertraline [Zoloft] 25 mg PO DAILY 08/04/13 [History] Simethicone [Mylanta Gas Maximum Strength] 10 ml PO BID PRN 08/04/13 [History] Albuterol/Ipratropium [DuoNeb 3.0-0.5 MG/3 ML] 3 ml .XX TID 1 Days #3 neb [Rx] Budesonide/Formoterol [Symbicort 160-4.5 MCG] 2 puff INH BID 10/13/17 [History] Calcium Carbonate/Vitamin D3 [Calcium 500 + Vit D 200 Caplet] 1 each PO BID 07/20 [History] Fish Oil/Borage/Flax/Om3,6,9#1 [[place] 3-6-9 1,200 mg Softgel] 1,200 mg PO DAILY 10/13/17 [History] Isosorbide Mononitrate [Imdur] 60 mg PO DAILY 10/13/17 [History] Tiotropium [Spiriva] 18 mcg INH DAILY 10/13/17 [History] atorvaSTATin [Lipitor] 20 mg PO DAILY 10/13/17 [History] hydroCHLOROthiazide [Hydrochlorothiazide] 12.5 mg PO DAILY 10/13/17 [History] metFORMIN [Glucophage] 500 mg PO WITHDINNER 10/13/17 [History] Ciprofloxacin HCl [Cipro] 500 mg PO BID #14 tablet 03/21/19 [Rx] Past Medical History HEENT History: Reports: Cataract Cardiovascular History: Reports: Angina, CAD, Heart Failure, High Cholesterol, Hypertension, [place], Other (See Below) Other Cardiovascular History: mild aortic regurg., mitral valve insuff. Respiratory History: Reports: Asthma, COPD Gastrointestinal History: Reports: GERD Other Genitourinary History: indwelling catheter Psychiatric History: Reports: Anxiety Endocrine/Metabolic History: Reports: Diabetes, Type II, Obesity/BMI 30+ Hematologic History: Reports: Anemia, Other (See Below) Other Hematologic History: thrombocytopenia Oncologic (Cancer) History: Reports: Prostate - Past Surgical History Cardiovascular Surgical History: Reports: Coronary Artery Bypass, Coronary Artery Stent ED ROS GENERAL - Review of Systems Review Of Systems: See Below Constitutional: Reports: No Symptoms HEENT: Reports: No Symptoms Respiratory: Reports: No Symptoms Cardiovascular: Reports: No Symptoms Endocrine: Reports: No Symptoms GI/Abdominal: Reports: Abdominal Pain (resolved after catheter flushed and draining again) : Reports: Other (catheter obstruction/pressure) Musculoskeletal: Reports: No Symptoms Skin: Reports: No Symptoms Neurological: Reports: No Symptoms Psychiatric: Reports: No Symptoms Hematologic/Lymphatic: Reports: No Symptoms ED EXAM, RENAL/ - Physical Exam Exam: See Below Exam Limited By: No Limitations General Appearance: Alert, WD/WN, No Apparent Distress Eye Exam: Bilateral Eye: EOMI, Normal Inspection Head: Atraumatic, Normocephalic Neck: Normal Inspection, Supple, Non-Tender, Full Range of Motion Respiratory/Chest: No Respiratory Distress, Lungs Clear, Normal Breath Sounds, No Accessory Muscle Use, Chest Non-Tender Cardiovascular: Normal Peripheral Pulses, Regular Rate, Rhythm, No Edema, No Gallop, No JVD, No Murmur, No Rub GI/Abdominal: Normal Bowel Sounds, Soft, Non-Tender, No Organomegaly, No Distention, No Abnormal Bruit, No Mass Neurological: Alert, Oriented, CN II-XII Intact, Normal Cognition, Normal Gait, Normal Reflexes, No Motor/Sensory Deficits Psychiatric: Normal Affect, Normal Mood Skin Exam: Warm, Dry, Intact, Normal Color, No Rash Lymphatic: No Adenopathy Course - Vital Signs Last Recorded V/S: Last Vital Signs Temp 36.2 C 03/24/19 14:15 Pulse 75 03/24/19 14:15 Resp 18 03/24/19 14:15 BP 138/81 03/24/19 14:15 Pulse Ox 98 03/24/19 14:15 Departure - Departure Time of Disposition: 14:35 Disposition: Home, Self-Care 01 Condition: Good Clinical Impression: Obstructed Cuellar catheter - Discharge Information *PRESCRIPTION DRUG MONITORING PROGRAM REVIEWED*: Not Applicable *COPY OF PRESCRIPTION DRUG MONITORING REPORT IN PATIENT ROYCE: Not Applicable Instructions: Indwelling Urinary Catheter Care, Adult, [id number] Referrals: Mari Victor, DO [Primary Care Provider] - Forms: ED Department Discharge Additional Instructions: Plan 1. Stay well hydrated 2. You can always come to the ED or the clinic to have your catheter unplugged 3. Follow up with your urologist for catheter removal 4. Return if you start to develop fever, chills, night sweats 5. Call if you have any further questions or concerns - Problem List & Annotations (1) Obstructed Cuellar catheter SNOMED Code(s): 031860355 Code(s): T83.091A - [facility] COMPL OF INDWELLING URETHRAL CATHETER, INIT Status : Acute Priority: Low Current Visit: Yes Qualifiers: Encounter type: subsequent encounter Qualified Code(s): T83.091D - Other mechanical complication of indwelling urethral catheter, subsequent encounter - Problem List Review Problem List Initiated/Reviewed/Updated: Yes - Assessment/Plan Assessment:: obstructed cuellar catheter Plan: Plan 1. Stay well hydrated 2. You can always come to the ED or the clinic to have your catheter unplugged 3. Follow up with your urologist for catheter removal 4. Return if you start to develop fever, chills, night sweats 5. Call if you have any further questions or concerns
== END 2019-03-24 14:42 | disposition home or self-care (01) ==
LOC: VM.ED 14:11
DX: T83.091D Other mechanical complication of indwelling urethral catheter, subsequent encounter (principal); I11.0 Hypertensive heart disease with heart failure; I50.9 Heart failure, unspecified; E11.9 Type 2 diabetes mellitus without complications; E66.9 Obesity, unspecified; I25.10 Atherosclerotic heart disease of native coronary artery without angina pectoris; I25.2 Old myocardial infarction; J44.9 Chronic obstructive pulmonary disease, unspecified; K21.9 Gastro-esophageal reflux disease without esophagitis; F41.9 Anxiety disorder, unspecified; Z88.8 Allergy status to other drugs, medicaments and biological substances; Z79.82 Long term (current) use of aspirin; Z79.84 Long term (current) use of oral hypoglycemic drugs; Z79.899 Other long term (current) drug therapy; Z95.1 Presence of aortocoronary bypass graft; Z95.5 Presence of coronary angioplasty implant and graft
CPT/HCPCS: 51700; 99283-25; 99283-GF

== ENCOUNTER 2019-03-25 14:40 | Emergency (ER) | payer MEDICARE ==
--- NOTE | 2019-03-26 06:35 | EDM.PDOC ---
ED HPI GENERAL MEDICAL PROBLEM - General Chief Complaint: Genitourinary Problem Stated Complaint: ER Time Seen by Provider: 03/25/19 14:45 Source of Information: Reports: Patient History Limitations: Reports: No Limitations - History of Present Illness INITIAL COMMENTS - FREE TEXT/NARRATIVE: Pt. presents to ER with complaints that his cuellar catheter is not draining. He has been seen in the ER for this numerous times in the past several weeks. Today , he states that he has pain in the bladder and states that he still has drainage from the catheter. Denies any fever or chills. He is still taking the cipro for his UTI. Nursing staff reports on examination of the patient on arrival, the Stat Lock device has become detached from the catheter, and the catheter and tubing are pulling on the penis, and subsequently pulling the inflated balloon against the inside of the bladder. He states that the hematuria has improved. Pt. was bladder scanned on arrival to ER and there was no urine in the bladder. Onset Date: 03/25/19 Lower Abdomen Pain Score (Numeric/FACES): 6 - Related Data Allergies Allergy/AdvReac Type Severity Reaction Status Date / Time niacin AdvReac Nausea and Verified 03/25/19 15:27 Vomiting Home Meds: Home Meds ALPRAZolam [Xanax] 0.25 mg PO Q8H PRN 08/04/13 [History] Albuterol [Proventil HFA] 1 puff INH QID PRN 08/04/13 [History] Aspirin [Low Dose Aspirin EC] 81 mg PO DAILY 08/04/13 [History] Carvedilol [Coreg] 25 mg PO BID 08/04/13 [History] Docusate Sodium [Colace] 100 mg PO DAILY 08/04/13 [History] Furosemide [Lasix] 20 mg PO BID 08/04/13 [History] Losartan [Cozaar] 100 mg PO DAILY 08/04/13 [History] Nitroglycerin [Nitrostat] 0.4 mg SL ASDIRECTED PRN 08/04/13 [History] Omeprazole [Prilosec] 20 mg PO DAILY PRN 08/04/13 [History] Sertraline [Zoloft] 25 mg PO DAILY 08/04/13 [History] Simethicone [Mylanta Gas Maximum Strength] 10 ml PO BID PRN 08/04/13 [History] Albuterol/Ipratropium [DuoNeb 3.0-0.5 MG/3 ML] 3 ml .XX TID 1 Days #3 neb [Rx] Budesonide/Formoterol [Symbicort 160-4.5 MCG] 2 puff INH BID 10/13/17 [History] Calcium Carbonate/Vitamin D3 [Calcium 500 + Vit D 200 Caplet] 1 each PO BID 07/20 [History] Fish Oil/Borage/Flax/Om3,6,9#1 [[place] 3-6-9 1,200 mg Softgel] 1,200 mg PO DAILY 10/13/17 [History] Isosorbide Mononitrate [Imdur] 60 mg PO DAILY 10/13/17 [History] Tiotropium [Spiriva] 18 mcg INH DAILY 10/13/17 [History] atorvaSTATin [Lipitor] 20 mg PO DAILY 10/13/17 [History] hydroCHLOROthiazide [Hydrochlorothiazide] 12.5 mg PO DAILY 10/13/17 [History] metFORMIN [Glucophage] 500 mg PO WITHDINNER 10/13/17 [History] Ciprofloxacin HCl [Cipro] 500 mg PO BID #14 tablet 03/21/19 [Rx] Past Medical History HEENT History: Reports: Cataract Cardiovascular History: Reports: Angina, CAD, Heart Failure, High Cholesterol, Hypertension, [place], Other (See Below) Other Cardiovascular History: mild aortic regurg., mitral valve insuff. Respiratory History: Reports: Asthma, COPD Gastrointestinal History: Reports: GERD Other Genitourinary History: indwelling catheter Psychiatric History: Reports: Anxiety Endocrine/Metabolic History: Reports: Diabetes, Type II, Obesity/BMI 30+ Hematologic History: Reports: Anemia, Other (See Below) Other Hematologic History: thrombocytopenia Oncologic (Cancer) History: Reports: Prostate - Past Surgical History Cardiovascular Surgical History: Reports: Coronary Artery Bypass, Coronary Artery Stent Social & Family History - Tobacco Use Smoking Status *Q: Unknown Ever Smoked - Recreational Drug Use Recreational Drug Use: No ED ROS GENERAL - Review of Systems Review Of Systems: See Below Constitutional: Reports: No Symptoms. Denies: Fever, Chills : Reports: Pain. Denies: Hematuria ED EXAM, GENERAL - Physical Exam Exam: See Below (Male) Exam: No Hernia, Normal Inspection. No: Scrotal Swelling, Scrotum Tenderness (L), Scrotum Tenderness (R), Urethral Discharge Course - Vital Signs Last Recorded V/S: Last Vital Signs Temp 36.0 C 03/25/19 14:45 Pulse 67 03/25/19 14:45 Resp 16 03/25/19 14:45 BP 130/80 03/25/19 14:45 Pulse Ox 97 03/25/19 14:45 - Orders/Labs/Meds Orders: Active Orders 24 hr Category Date Time Status Bladder Irrigation [RC] ASDIRECTED Care 03/25/19 14:50 Active Bladder Scan [RC] ASDIRECTED Care 03/25/19 15:44 Active - Re-Assessments/Exams Free Text/Narrative Re-Assessment/Exam: The catheter was readjusted. New stat lock was placed. Did attempt to irrigate the catheter. Small amount of mucus was irrigated from bladder. Bladder was freely able to be irrigated. Again, bladder scan read 0 ml. Departure - Departure Time of Disposition: 15:15 Disposition: Home, Self-Care 01 Condition: Good Clinical Impression: Painful bladder spasm - Discharge Information Referrals: Mari Victor DO [Primary Care Provider] - Forms: ED Department Discharge Additional Instructions: Continue with current antibiotics. The bacteria that grew in your urine is susceptible to the antibiotic that you are on. Return to ER if you no longer have urine output into the bag. You bladder is empty at this time. The discomfort you are experiencing is likely due to bladder spasm. This is common when you have a catheter in place. - My Orders Last 24 Hours: My Active Orders 03/25/19 14:50 Bladder Irrigation [RC] ASDIRECTED 03/25/19 15:44 Bladder Scan [RC] ASDIRECTED - Assessment/Plan Last 24 Hours: My Active Orders 03/25/19 14:50 Bladder Irrigation [RC] ASDIRECTED 03/25/19 15:44 Bladder Scan [RC] ASDIRECTED Plan: Continue with current antibiotics. The bacteria that grew in your urine is susceptible to the antibiotic that you are on. Return to ER if you no longer have urine output into the bag. You bladder is empty at this time. The discomfort you are experiencing is likely due to bladder spasm. This is common when you have a catheter in place.
== END 2019-03-25 15:18 | disposition home or self-care (01) ==
LOC: VM.ED 14:40
DX: N32.89 Other specified disorders of bladder (principal); I25.10 Atherosclerotic heart disease of native coronary artery without angina pectoris; I11.0 Hypertensive heart disease with heart failure; I50.9 Heart failure, unspecified; E78.00 Pure hypercholesterolemia, unspecified; I25.2 Old myocardial infarction; J44.9 Chronic obstructive pulmonary disease, unspecified; K21.9 Gastro-esophageal reflux disease without esophagitis; F41.9 Anxiety disorder, unspecified; E11.9 Type 2 diabetes mellitus without complications; Z88.8 Allergy status to other drugs, medicaments and biological substances; Z79.899 Other long term (current) drug therapy; Z79.82 Long term (current) use of aspirin; Z79.84 Long term (current) use of oral hypoglycemic drugs
CPT/HCPCS: 51700; 51798; 99283; 99283-GF

== ENCOUNTER 2022-05-16 12:10 | Emergency (ER) | payer MEDICARE, SELFPAY ==
[2022-05-16] MEDS ORDERED: Sodium Chloride 0.9% 1,000 ML IV ONE (12:15)
[2022-05-16] MEDS ORDERED: Meclizine 25 MG Tab PO ONE (13:24)
[2022-05-16] MEDS ORDERED: Ondansetron 4 MG/2 ML SDV IVPUSH ONE (13:24)
== END 2022-05-16 13:50 | disposition home or self-care (01) ==
LOC: VM.ED 12:10
DX: R11.2 Nausea with vomiting, unspecified (principal); I11.0 Hypertensive heart disease with heart failure; I50.9 Heart failure, unspecified; J44.9 Chronic obstructive pulmonary disease, unspecified; I25.10 Atherosclerotic heart disease of native coronary artery without angina pectoris; T50.905A Adverse effect of unspecified drugs, medicaments and biological substances, initial encounter; I25.2 Old myocardial infarction; E11.9 Type 2 diabetes mellitus without complications; E66.9 Obesity, unspecified; Z68.32 Body mass index [BMI] 32.0-32.9, adult; Z88.8 Allergy status to other drugs, medicaments and biological substances; Z79.899 Other long term (current) drug therapy; Z79.82 Long term (current) use of aspirin
CPT/HCPCS: 96361; 96374; 99283; 99284; A9270; J2405; J7030